=== PATIENT | female | born 1985 | race Caucasian/White ===

== ENCOUNTER 2024-03-01 22:50 | Observation (INO) | payer BC ==
[~2024-03-01 22:50] MED LIST: Iopamidol 300 61% 100 ML VIAL FS ONE
[2024-03-01] MEDS ORDERED: Morphine 4 MG/ML VIAL ONE (23:57)
[2024-03-01] MEDS ORDERED: Ketorolac Tromethamine 30 MG (1 mL) VIAL ONE (23:57)
[2024-03-02 00:23] LABS: BHCG - Serum Negative (NEGATIVE); Pregs Control Background? CLEAR/WHITE (CLR/WHITE); Pregs Control Bar Appear? YES (CONTROL BAR)
[2024-03-02 00:31] LABS: ALT (SGPT) 352 U/L (8-55); AST (SGOT) 306 U/L (5-34); Albumin 3.8 g/dL (3.5-5.0); Alkaline Phosphatase 92 U/L (40-110); Anion Gap 13 mmol/L (10-20); BUN (Urea Nitrogen) 7 mg/dL (7.0-18.7); Bilirubin, Total 2.5 mg/dL (0.2-1.2); Calc. Creatinine Clearance 0 mL/min (70-130); Calcium 8.7 mg/dL (7.8-10.44); Carbon Dioxide 22 mmol/L (22-29); Chloride 105 mmol/L (98-107); Estimated GFR 99; Globulin 2.8 g/dL (2.4-3.5); Glucose 97 mg/dL (70-105); Lipase 17 U/L (8-78); Potassium 4.3 mmol/L (3.5-5.1); Protein, Total 6.6 g/dL (6.0-8.3); Sodium 136 mmol/L (136-145)
[2024-03-02 00:59] LABS: #Basophils 0.03 10x3/uL (0.0-0.2); #Eosinphils 0.19 10x3/uL (0.0-0.5); #Monocytes 0.57 10x3/uL (0.0-1.1); #Neutrophils 7.29 10x3/uL (1.5-8.4); %Basophils 0.3 % (0.0-2.0); %Eosinophils 2.1 % (0.0-6.0); %Lymphocytes 8.4 % (18.0-47.0); %Monocytes 6.4 % (0.0-10.0); %Neutrophils 82.5 % (40.0-75.0); Hematocrit 35.2 % (34.9-44.5); Hemoglobin 11.8 g/dL (12.0-15.5); Mean Corpuscular HGB CONC 33.5 g/dL (32.0-36.0); Mean Corpuscular Hemoglobin 30.6 pg (27.0-33.0); Mean Corpuscular Volume 91.2 fL (81.6-98.3); Mean Platelet Volume 9.6 fL (7.4-10.4); Platelet Count 197 10x3/uL (150-450); RBC Distribution Width 12.4 % (11.5-14.5); Red Blood Cell (RBC) Count 3.86 10x6/uL (3.90-5.03); White Blood Cell (WBC) Count 8.9 10x3/uL (3.5-10.5)
[2024-03-02] MEDS ORDERED: Morphine 4 MG/ML VIAL ONE (02:17)
[2024-03-02] MEDS ORDERED: Piperacillin/Tazobactam 3.375 GM VIAL ONE (03:16)
[2024-03-02] MEDS ORDERED: HYDROmorphone 0.5 MG/0.5 ML SYRINGE ONE (03:37)
[2024-03-02] MEDS ORDERED: Ondansetron PF 4 MG/2 ML Vial IVP PRN (04:44)
[2024-03-02 04:58] VITALS: BMI 25.7
[2024-03-02] MEDS: Sodium Chloride 0.9% 1,000 ML IV SCH (05:06)
[2024-03-02] MEDS: Morphine 4 MG/ML VIAL SLOW IVP PRN (13:32)
[2024-03-02 17:41] VITALS: BP 115/72; TEMP 98.9
== END 2024-03-02 17:44 | disposition short-term general hospital (02) ==
LOC: CSHERS 22:50 → CSHTELE 03-02 03:23
PROVIDERS: ADMIT Surgery; ATTEND Surgery
DX: R10.11 Right upper quadrant pain (principal); R94.5 Abnormal results of liver function studies
CPT/HCPCS: 36415; 71045; 74177; 74181; 76376; 78226; 80053; 83605; 83690; 84703; 85025; 96365; 96375; 96376; A9537; G0378; J1170; J1885; J2272; J2543; J7030; Q9967